=== PATIENT | female | born 1955 | race African-American/Black ===

== ENCOUNTER → 2018-08-18 | Outpatient (CLI) | payer OTHER ==
[~2018-08-18] MED LIST: FLECAINIDE ACET50 M2 PO; HYDROCHLOROTH12.5 M1 PO; LISINOPRIL2.5 MG PO
--- NOTE | ~2018-08-18 | EKG ---
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 : 1955 Requested By: Wilfredo Wells Order Number: [id number] MD: Fradny Nieves Measurements Intervals [place] Rate: 89 P: 48 CO: 139 QRS: -14 QRSD: 85 T: 29 QT: 434 QTc: 529 Interpretive Statements Sinus rhythm Abnormal R-wave progression, late transition Nonspecific T abnrm, anterolateral leads Prolonged QT interval No previous ECG available for comparison Electronically Signed On 08-19-2018 8:46:14 CDT by Frandy Nieves [email or web address] <ELECTRONICALLY SIGNED> By: Frandy Nieves MD, [facility] 08/19/1846 Frandy Nieves MD, [facility] /EPI
== END | disposition home or self-care (01) ==
LOC: LITH 09:43
DX: N20.1 Calculus of ureter (principal); I10 Essential (primary) hypertension; K21.9 Gastro-esophageal reflux disease without esophagitis; Z87.19 Personal history of other diseases of the digestive system; G43.909 Migraine, unspecified, not intractable, without status migrainosus; Z80.0 Family history of malignant neoplasm of digestive organs; Z87.440 Personal history of urinary (tract) infections; Z90.710 Acquired absence of both cervix and uterus; Z98.890 Other specified postprocedural states; Z88.0 Allergy status to penicillin; Z79.899 Other long term (current) drug therapy

== ENCOUNTER 2018-08-27 19:52 | Emergency (ER) | payer OTHER ==
[~2018-08-27] VITALS: Ht 167.6 cm; Wt 68.0 kg
--- NOTE | ~2018-08-27 | EKG ---
[place] [address] [facility] [place] [address] ELECTROCARDIOGRAM REPORT Name: YA DALY Room #: [facility]#: [id number] Admission: 08/27/18 Attend Phys: Discharge: 08/28/18 Date of : 59 Report #: [id number] THIS REPORT FOR: //name// 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1955 Requested By: Rocio Garcia Order Number: [id number] MD: Frandy Nieves Measurements Intervals [place] Rate: 68 P: 28 [place]: 141 QRS: -6 QRSD: 86 T: QT: 405 QTc: 431 Interpretive Statements Sinus rhythm Abnrm T, consider ischemia, anterolateral lds Baseline wander in lead(s) II,III,aVF,V6 Compared to ECG 08/18/2018 10:08:26 No significant change was found Electronically Signed On 08-28-2018 8:04:09 MANAGER PHOTOGRAPHY by Frandy Nieves [email or web address] <ELECTRONICALLY SIGNED> By: Frandy Nieves MD, [facility] 08/28/18803 30 30 Frandy Nieves MD, [facility] /EPI
[2018-08-27 20:14] LABS: URINE BILIRUBIN NEGATIVE (Negative); URINE BLOOD 3+ (Negative); URINE CLARITY CLEAR; URINE COLOR YELLOW; URINE GLUCOSE-RANDOM* NEGATIVE (Negative); URINE KETONES NEGATIVE (Negative); URINE LEUKOCYTES NEGATIVE (Negative); URINE NITRITE NEGATIVE (Negative); URINE PROTEIN (DIPSTICK) NEGATIVE (Negative); URINE SPECIFIC GRAVITY >= 1.030 (1.005-1.035); URINE UROBILINOGEN 0.2 E.U./dl (0.2-1.0)
[2018-08-27 20:32] LABS: BACTERIA None Seen /HPF (None Seen); CASTS None Seen /LPF (None Seen); CRYSTALS None Seen /LPF (None Seen); SQUAMOUS 0-3 Few /LPF (0-3); URINE WBC 0-5 Rare /HPF (0-5)
[2018-08-27 20:39] LABS: ABSOLUTE NEUTROPHILS 6.6 thou/uL (1.4-8.2); BASOPHILS 0.9 % (0.0-2.0); EOSINOPHILS 6.3 % (0.0-3.0); HEMATOCRIT 36.5 % (37.0-47.0); HEMOGLOBIN 12.2 gm/dL (12.0-15.0); LYMPHOCYTES 23.7 % (24.0-44.0); MCH 27.5 pg (26.0-34.0); MCHC 33.5 g/dL (28.0-37.0); MCV 82.3 fL (80.0-100.0); MONOCYTES 9.5 % (1.0-8.0); POLYS 59.6 % (36.0-66.0); RBC 4.44 mil/uL (4.20-5.00); RDW 14.3 % (10.5-14.5); WBC 12.2 thou/uL (4.0-11.0)
[2018-08-27 20:50] LABS: ANION GAP 9 mmol/L (7-16); BUN 17 mg/dL (7-18); CALCIUM 10.3 mg/dL (8.5-10.1); CHLORIDE 102 mmol/L (98-107); CO2 29 mmol/L (21-32); CREATININE 1.3 mg/dL (0.6-1.0); GLUCOSE 86 mg/dL (74-106); POTASSIUM 3.5 mmol/L (3.5-5.1); SODIUM 140 mmol/L (136-145)
[2018-08-27 20:58] LABS: LIPASE 134 U/L (73-393); SGOT 22 U/L (15-37); SGPT 29 U/L (30-65); TOTAL BILIRUBIN 0.3 mg/dL (<0.1-1.0); TOTAL PROTEIN 8.8 g/dL (6.4-8.2); TROPONIN-I <0.06 ng/mL (<0.06)
[2018-08-27 21:00] LABS: PLATELET COUNT 313 thou/uL (150-400)
[2018-08-27 23:08] VITALS: BP 160/87
== END 2018-08-28 00:05 | disposition short-term general hospital (02) ==
LOC: ER 19:52
PROVIDERS: Physician Assistant
DX: N20.1 Calculus of ureter (principal); N13.4 Hydroureter; I48.91 Unspecified atrial fibrillation; I10 Essential (primary) hypertension; F17.210 Nicotine dependence, cigarettes, uncomplicated; Z90.710 Acquired absence of both cervix and uterus; Z87.442 Personal history of urinary calculi; Z80.0 Family history of malignant neoplasm of digestive organs